=== PATIENT | male | born 1970 | race American Indian/Alaskan Native ===

== ENCOUNTER 2021-02-05 15:02 | Emergency (ER) | payer SELFPAY ==
--- NOTE | 2021-02-05 17:14 | Emergency Department Report ---
ED General Adult HPI - General Chief complaint: Wound/Laceration Stated complaint: LT BIG TOE WOUND Source: patient Mode of arrival: Ambulatory Limitations: No Limitations - History of Present Illness Initial comments: patient presents with a wound on his left great toe. It has been there for several weeks. He has noticed some swelling. He thinks that there is an odor associated with this. There is no trauma noted. He is a diabetic. He states that he had recently moved back to the area and does not have anyone to check his feet. He states that he can look at the top of his feet, but not see the bottom of his feet. There is no known injury. He has not stepped on anything. He came in for evaluation and treatment because of the wound itself. There is minimal pain associated with this. There is no other injury. - Related Data Previous Rx's Medication Instructions Recorded Last Taken Type metFORMIN [Glucophage] 500 mg PO BID #180 tablet 10/24/14 Unknown Rx Amoxicillin/Potassium Clav 1 each PO BID #20 tablet 02/05/21 Unknown Rx [Augmentin 875-125 Tablet] Allergies Allergy/AdvReac Type Severity Reaction Status Date / Time No Known Allergies Allergy Verified 02/05/21 17:06 ED Review of Systems ROS: Stated complaint: LT BIG TOE WOUND Other details as noted in HPI Comment: All other systems reviewed and negative Constitutional: denies: fever Eyes: denies: eye pain ENT: denies: throat pain Respiratory: denies: cough Cardiovascular: denies: chest pain Endocrine: denies: unexplained weight loss Gastrointestinal: denies: abdominal pain Genitourinary: denies: dysuria Musculoskeletal: denies: back pain Skin: denies: rash Neurological: denies: headache Hematological/Lymphatic: denies: easy bruising ED Past Medical Hx - Past Medical History Hx Diabetes: Yes - Family History Family history: diabetes - Social History Smoking Status: Current Every Day Smoker (We discussed tobacco cessation x3 minutes) - Medications Home Medications: Home Medications Medication Instructions Recorded Confirmed Last Taken Type metFORMIN [Glucophage] 500 mg PO BID #180 tablet 10/24/14 Unknown Rx Amoxicillin/Potassium Clav 1 each PO BID #20 tablet 02/05/21 Unknown Rx [Augmentin 875-125 Tablet] ED Physical Exam - General Limitations: No Limitations, Other ( pulse ox is noted to normal but is not hypoxic.) General appearance: alert, in no apparent distress, obese - Head Head exam: Present: atraumatic, normocephalic, normal inspection - Eye Eye exam: Present: normal appearance, PERRL, EOMI - ENT ENT exam: Present: normal exam, normal orophraynx, mucous membranes moist, normal external ear exam - Neck Neck exam: Present: normal inspection. Absent: meningismus - Respiratory Respiratory exam: Present: normal lung sounds bilaterally. Absent: respiratory distress - Cardiovascular Cardiovascular Exam: Present: regular rate, normal rhythm - GI/Abdominal GI/Abdominal exam: Present: soft. Absent: tenderness - Extremities Exam Extremities exam: Present: normal capillary refill, other ( There is a 1 cm wound to the medial aspect of the left great toe. There is no bleeding. There is no warmth or erythema. There is no evidence of necrosis.). Absent: calf tenderness - Back Exam Back exam: Absent: CVA tenderness (R), CVA tenderness (L) - Neurological Exam Neurological exam: Present: alert, oriented X3, CN II-XII intact. Absent: motor sensory deficit - Psychiatric Psychiatric exam: Present: normal affect, normal mood - Skin Skin exam: Present: warm, dry ED Course Vital Signs 02/05/21 17:05 Temperature 98.3 F Pulse Rate 93 H Respiratory 18 Rate Blood Pressure 177/118 O2 Sat by Pulse 100 Oximetry - Reevaluation(s) Reevaluation #1: 02/05/21 17:14 Radiographs are ordered. Reevaluation #2: 02/05/21 17:42 X-rays are noted. Patient was discharged. ED Medical Decision Making - Medical Decision Making Patient presents with a foot wound. There is no evidence of osteomyelitis based on radiographs. He was started on antibiotic therapy empirically. He was referred for outpatient evaluation and follow-up. He does not appear to be septic or toxic. He is not tachycardic. There is no Kussmaul respirations. I am not concerned for DKA. We discussed outpatient management including foot care. Critical Care Time: No Critical care attestation.: If time is entered above; I have spent that time in minutes in the direct care of this critically ill patient, excluding procedure time. ED Disposition Clinical Impression: Diabetic foot ulcer Qualifiers: Diabetic foot ulcer location: toe Diabetes mellitus type: type 2 Laterality: left Non-pressure ulcer stage: with fat layer exposed Qualified Code(s): E11.621 - Type 2 diabetes mellitus with foot ulcer; L97.522 - Non-pressure chronic ulcer of other part of left foot with fat layer exposed Disposition: 01 HOME / SELF CARE / HOMELESS Is pt being admited?: No Condition: Stable Instructions: Diabetes Mellitus Type 2 in Adults (ED), Diabetes Mellitus and Foot Care, Diabetes Mellitus and Sick Day Management, Type 2 Diabetes Mellitus, Self Care, Adult Additional Instructions: Elevate the foot. Keep the wound clean. Return for problems. Take your medication. Follow-up with your regular doctor for recheck. Prescriptions: Amoxicillin/Potassium Clav [Augmentin 875-125 Tablet] 1 each PO BID #20 tablet Referrals: PRIMARY CAREMD [Referring] - 3-5 Days ONEYDA JOHNSON MD [Staff Physician] - 3-5 Days
--- NOTE | 2021-02-05 17:39 | XRay Report ---
LEFT FOOT 3 VIEWS 1723 INDICATION: Wound on toe, evaluate for osteomyelitis COMPARISON: None available. FINDINGS: Bandaging is seen in the great toe. Oblique and AP views are underpenetrated for soft tissu e detail. No obvious fractures or dislocations are seen. No bony erosions are obvious. No foreign bodies are se en. No soft tissue gas is noted. Mild tarsal degenerative changes are seen. If there is continued clinical concern for osteomyelitis I would recommend MR. Signer Name: Ernesto Avilez MD Signed: 02/05/2021 5:35 PM Workstation Name: [id number]
[2021-02-05 18:42] VITALS: BP 163/99
== END 2021-02-05 18:40 | disposition home or self-care (01) ==
LOC: ED 15:02
DX: E11.621 Type 2 diabetes mellitus with foot ulcer (principal); L97.522 Non-pressure chronic ulcer of other part of left foot with fat layer exposed; F17.210 Nicotine dependence, cigarettes, uncomplicated
CPT/HCPCS: 99283